=== PATIENT | female | born 1985 | race Caucasian/White ===

== ENCOUNTER 2016-11-30 11:23 | Emergency (ER) | payer MEDICAID ==
[2016-11-30 15:00] VITALS: BP 159/115
== END 2016-11-30 15:00 | disposition home or self-care (01) ==
LOC: ED 11:23
DX: R03.0 Elevated blood-pressure reading, without diagnosis of hypertension (principal); F41.1 Generalized anxiety disorder; I10 Essential (primary) hypertension; Z88.8 Allergy status to other drugs, medicaments and biological substances